=== PATIENT | female | born 1985 | race Two or more races ===

== ENCOUNTER 2025-06-25 02:01 | Emergency (ER) | payer MEDICAID, SELFPAY ==
[2025-06-25 02:01] VITALS: BP 118/87; PULSE 120; RESP 18; TEMP 36.9; O2SAT 97
--- NOTE | 2025-06-25 04:08 | PD.EDEAR ---
ED Ear RME/HPI General Chief complaint: Ear Stated complaint: SOMETHING IN LEFT EAR Time Seen by Provider: 06/25/25 02:13 Arrival date/time: 06/25/25 02:01 40F with no significant PMH presents to ED with insect in L ear. Limitations: no limitations Related Data Previous Rx's ?Medication ?Instructions ?Recorded edarctjk-okqohvmrw-smfqvcceg 3.5 4 drp otic (ear) BID 7 days #10 mL 06/25/25 mg-10,000 unit/mL-1 % ear drops,susp Allergies Allergy/AdvReac Type Severity Reaction Status Date / Time No Known Allergies Allergy Verified 06/25/25 02:01 Review of Systems Review of Systems Systems Reviewed: All systems reviewed, normal except as documented Past Medical History Social History SMOKING STATUS: Never smoker ED Exam General Limitations: Present no limitations General appearance: Present alert, anxious and in distress Head Head exam: Present atraumatic ENT ENT exam: Present mucous membranes moist Expanded ENT Exam TM/Canal exam: Left TM: foreign body Neck Neck exam: Present normal inspection, full ROM and trachea midline Chest Chest inspection: Present normal inspection and symmetric chest wall rise Neurological Exam Neurological exam: Present alert and oriented X3 Psychiatric Psychiatric exam: Present normal affect and anxious Skin Skin exam: Present warm, dry, intact and normal color Course Quality Measures none Orders Category Date Time Status ED Ear Irrigation X1 Care 06/25/25 02:38 Active Vital Signs Vital signs: Vital Signs Temperature 98.5 F 06/25/25 02:01 Pulse Rate 120 H 06/25/25 02:01 Respiratory Rate 18 06/25/25 02:01 Blood Pressure 118/87 H 06/25/25 02:01 Pulse Oximetry (%) 97 06/25/25 02:01 Oxygen Delivery Method Room Air 06/25/25 02:01 O2 at 97% on RA and WNLs Ear MDM Narrative MDM Narrative:: 40F with no significant PMH presents to ED with insect in L ear. Physical exam reveals insect in L ear. Patient is afebrile, alert, but anxious/in pain. Insect killed. Despite multiple attempts with irrigation, removal was unsuccessful. Given ABX prophylaxis and outpatient ENT referral. Patient data External records reviewed:: None Clinical information provided by:: patient Social determinants that could affect healthcare access:: none Patient has the following chronic illnesses:: none How is presenting disease/condition affected by chronic disease/condition?: no chronic disease Evaluation data The following diagnostics were reviewed and interpreted by me:: other (specify) (none) Lab and/or radiology exams considered but not ordered:: not ordered Interpretation Summary: n/a Medications / Prescriptions Medications or Prescriptions considered but not ordered:: not ordered Medication administrations:: n/a Consultations Consultation(s) initiated? (list below): No Diagnosis Ear Differential Diagnosis: otitis externa, otitis media, foreign body in ear, ruptured TM and cerumen impaction Most likely diagnosis given after review of the tests above:: FB ear Admission Indicated Admission indicated?: not indicated Admission Request Was there a request for admission?: No Disposition Plan Disposition Plan: Discharge Discharge Attestation Discharge Attestation: The patient and all family members were given an opportunity to ask questions and understood the discharge instructions. Discharge instructions specifically effects, indications for sooner follow up or return to the emergency department, and the expected course of current diagnosis. Patient condition: Stable Discharge Plan Plan Patient Disposition: HOME (Self Care) Discharge Disposition comment: Stable Prescriptions/Referrals Prescriptions/Med Rec: New xwiyggci-dsszherax-XM 3.5-10,000-1 mg/mL-unit/mL-% drops,suspension 4 drp otic (ear) BID 7 Days Qty: 10 0RF Referrals: Naldo Bonilla DO [Physician, Ear, Nose, Throat] - In 1 week Referral Note: Call office in AM Clinical Impression: Foreign body of ear Problem List Clinical Impression: Foreign body of ear Patient/Caregiver Discharge Instructions Education Materials: ED EAR CANAL Foreign Body Additional Instructions: Please follow-up with PCP within 24-48 hours and return immediately if symptoms worsen. Call Dr. Bonilla's office in AM to see when you can be seen. Print Language: Portuguese Stand Alone Forms: Patient Portal Info Letter ALICE/PORTIA Supervising Physician TATIANNA Supervising Physician: Dr. Tay
== END 2025-06-25 03:18 | disposition home or self-care (01) ==
LOC: SERX 03:18
PROVIDERS: Emergency Provider Emergency Medicine; PCP Obstetrics & Gynecology
DX: T16.2XXA Foreign body in left ear, initial encounter (principal); W44.F4XA Insect entering into or through a natural orifice, initial encounter
CPT/HCPCS: 99281